=== PATIENT | female | born 1950 | race Caucasian/White ===

== ENCOUNTER 2016-02-25 09:14 | Inpatient (IN) | payer MEDICARE, SELFPAY ==
[~2016-02-25 09:14] MED LIST: METOPROLOL TARTRATE 25 MG TAB PO SCH
[2016-02-25] MEDS ORDERED: SODIUM CHLORIDE 0.9% 10 ML FLUSH FLUSH PRN (09:32)
[2016-02-25 09:41] LABS: AUTOMATED BASOPHIL 1.1 % (0-2); AUTOMATED EOSINOPHIL 2.2 % (0-5); AUTOMATED LYMPH 34.4 % (17-44); AUTOMATED MONOCYTE 7.8 % (3-10); AUTOMATED NEUTROPHIL 54.5 % (45-76); MPV 8.8 fL (7.4-10.4)
[2016-02-25 09:53] LABS: BLOOD UREA NITROGEN 15 MG/DL (7-17); CALCIUM 9.1 MG/DL (8.4-10.2); CALCULATED OSMOLALITY 273 MOs/Kg (270-290); CHLORIDE 102 mEq/L (98-107); GLUCOSE 79 MG/DL (70-99); SODIUM LEVEL 142 mEq/L (137-146); TOTAL PROTEIN 7.3 G/DL (6.3-8.2)
[2016-02-25 09:58] LABS: PARTIAL THROMB. TIME 24.1 SEC (22-35)
--- NOTE | 2016-02-25 10:00 | DIRPT ---
CLINICAL DATA: Chest pain EXAM: PORTABLE CHEST 1 VIEW COMPARISON: March 15, 2015 FINDINGS: There is no edema or consolidation. The heart size and pulmonary vascularity normal. No adenopathy. No pneumothorax. No bone lesions. IMPRESSION: No edema or consolidation. Electronically Signed By: Rufino Carvajal III, M.D. On: 02/25/2016 09:57
--- NOTE | 2016-02-25 10:18 | EDPRACDOC ---
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 PT STATES THAT SHE WAS GETTING READY THIS MORNING WHEN SHE GRADUALLY DEVELOPED CHEST PRESSURE. STATES THAT SHE TOOK 324 ASA AND 2 NITRO WITH MINIMAL RELIEF. MILDLY ASSOCIATED SHOB. PT HAS STENT IN LAD THAT WAS PLACED IN 2011 IN [place]. PMH OF HTN AND HLD. NO APPARENT DISTRESS AT THIS TIME. Chest Pain Location: Reports: Substernal Pain Radiation: Reports: None Symptoms Occur: Reports: Gradually Cardiac Risk Factors: Reports: Hyperlipidemia, Hypertension Cardiac History of: Reports: Cardiac Cath, Stent PE Risk Factors: Reports: None Medications within 24 Hours: Reports: Aspirin, Nitro Prehospital Care: Reports: None Pain Came On: Reports: Gradually Pain Status: Present Now Pain Description: Reports: Pressure Pain Severity: Moderate Pain Worsens With: Reports: Nothing Pain Improves With: Reports: Nothing Associated Signs and Symptoms: Reports: SOB <Anisha North - Last Filed: 02/25/16 10:48> <William Oconnor - Last Filed: 02/25/16 10:52> - General Information Chief Complaint: Chest Pain Stated Complaint: CP/ VOMITING/ DIARRHEA Time Seen by Provider: 02/25/16 09:32 Home Medications: Home Medications Aspirin 325 mg PO DAILY 03/15/15 Atorvastatin Calcium [Lipitor] 20 mg PO DAILY 03/15/15 Clopidogrel Bisulfate [Plavix] 75 mg PO DAILY 03/15/15 Lansoprazole [Prevacid 24Hr] 15 mg PO DAILY 03/15/15 Calcium Carbonate/Vitamin D3 [Calcium + Vit D Tablet (600mg/200IU)] 1 tab PO BID 02/25/16 Cholecalciferol (Vitamin D3) [Vitamin D3] 10,000 unit PO DAILY 02/25/16 Magnesium Oxide [Magnesium] 250 mg PO DAILY 02/25/16 Multivitamin [Multiple Vitamins] 1 tab PO DAILY 02/25/16 Allergies/Adverse Reactions: Allergies Allergy/AdvReac Type Severity Reaction Status Date / Time codeine [Codeine] Allergy Severe Anaphylaxis Verified 02/25/16 09:24 * iohexol [From Omnipaque 140] Allergy Severe Anaphylaxis Verified 02/25/16 09:24 * Iodinated Contrast Media - Allergy Anaphylaxis Verified 02/25/16 09:24 IV Dye * ED Past Medical History - History Reviewed Yes Nurses notes reviewed and agree except as marked - Patient Medical History Cardiac History: Reports: Coronary Artery Disease (stent), Hypertension, Heart Attack, Cardiac Catheterization (stents), Hypercholesterolemia Respiratory History: Reports: Asthma Musculoskeletal History: Reports: Arthritis Psychological History: Denies: Depression, Substance Use Disorder Systemic History: Reports: Cancer, Anemia, Diabetes (UNSURE IF DXD WITH DMT, STATES SHE CHECKS HER GLUCOSE INTERMITTENT) Surgical History: Reports: Cholecystectomy, Hysterectomy, Cardiac Catheterization (stents) - Family Medical History Reports: Hypertension (father, sister mother), Diabetes (father, sister mother, grandfather), Cancer (mother), Stroke (mother), Cardiac Disorders (father, sister, mother) - Social Medical History Smoking Status: Never smoker Social History: Denies: Substance Use Disorder <Anisha Nroth - Last Filed: 02/25/16 10:48> EDM Review of Systems - Review of Systems ROS Negative Except as Marked: Yes All systems reviewed and were negative except as marked Constitutional: No Symptoms Reported Respiratory: Shortness of Breath Cardiovascular: Chest Pain Gastrointestinal: No Symptoms Reported Genitourinary: No Symptoms Reported Neurological: No Symptoms Reported Musculoskeletal: No Symptoms Reported Integumentary: No Symptoms Reported <Anisha North - Last Filed: 02/25/16 10:48> - Physical Exam Constitutional: Alert (Awake), No apparent distress Oriented to: Time, Person, Place Last recorded Vital Signs: Last Vital Signs Temp 97.6 F 02/25/16 09:21 Pulse 69 02/25/16 09:39 Resp 20 02/25/16 09:39 BP 148/70 02/25/16 09:39 Pulse Ox 94 02/25/16 09:39 Oxygen Pulse Oxygen Saturation 94 O2 Device Room Air Oxygen Flow Rate Fraction of Inspired Oxygen ( FIO2) - HEENT Head: Normal Eye Exam: Normal Neck: Normal, Denies Pain, Midline - Respiratory/Cardiovascular Respiratory: Normal - CTA Cardiovascular: Normal - GI Auscultation: Normal Palpation: Normal Tenderness: Non tender - Musculoskeletal Back: Normal Extremities: Normal - Integumentary Skin: Normal Lymphatics: Normal - Neurologic Cerebellar: Normal Mood Description: Normal Thought: Coherent Perception: Normal <Anisha North - Last Filed: 02/25/16 10:48> - Physical Exam Last recorded Vital Signs: Last Vital Signs Temp 97.6 F 02/25/16 09:21 Pulse 69 02/25/16 10:34 Resp 17 02/25/16 10:34 BP 135/63 02/25/16 10:34 Pulse Ox 96 02/25/16 10:34 Oxygen Pulse Oxygen Saturation 96 O2 Device Room Air Oxygen Flow Rate Fraction of Inspired Oxygen ( FIO2) <William Oconnor - Last Filed: 02/25/16 10:52> ED Chest Pain Exam - Respiratory/Cardiovascular Respiratory: Normal - CTA Cardiovascular/Chest: Normal Radial Pulse: Normal Chest Palpation: Normal <Anisha North - Last Filed: 02/25/16 10:48> - Action ASA given in the ED: No Aspirin therapy held due to: Other-specify below* (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) - Results 02/25/16 09:29 02/25/16 09:29 WBC 5.5 xk/uL (3.8-10.8) 02/25/16 09:29 RBC 4.49 xM/uL (4.20-5.40) 02/25/16 09:29 Hgb 13.2 g/dL (12.0-16.0) 02/25/16 09:29 Hct 39.4 % (36-47) 02/25/16 09:29 MCV 88 fL (81-99) 02/25/16 09:29 MCH 29.3 pg (27-32) 02/25/16 09:29 MCHC 33.4 g/dl (33-36) 02/25/16 09:29 RDW 14.2 % (11.5-14.5) 02/25/16 09:29 Plt Count 280 xk/uL (130-400) 02/25/16 09:29 MPV 8.8 fL (7.4-10.4) 02/25/16 09:29 Neut % (Auto) 54.5 % (45-76) 02/25/16 09:29 Lymph % (Auto) 34.4 % (17-44) 02/25/16 09:29 [place] % (Auto) 7.8 % (3-10) 02/25/16 09:29 Eos % (Auto) 2.2 % (0-5) 02/25/16 09:29 Baso % (Auto) 1.1 % (0-2) 02/25/16 09:29 Absolute Neuts (auto) 2.97 xk/uL (1.7-8.2) 02/25/16 09:29 Absolute Lymphs (auto) 1.87 xk/uL (0.65-4.75) 02/25/16 09:29 PT 10.1 SEC (9.2-11.2) 02/25/16 09:29 INR 1.0 02/25/16 09:29 APTT 24.1 SEC (22-35) 02/25/16 09:29 Sodium 142 mEq/L (137-146) 02/25/16 09:29 Potassium 4.0 mEq/L (3.5-5.1) 02/25/16 09: Chloride 102 mEq/L (98-107) 02/25/16 09: Carbon Dioxide 30 mMOL/L (22-33) 02/25/16 09:29 Anion Gap 14 mEq/L (8-16) 02/25/16 09:29 BUN 15 MG/DL (7-17) 02/25/16 09:29 Creatinine 1.20 MG/DL (0.52-1.04) H 02/25/16 09:29 Estimated GFR (MDRD) 45 mL/min (>=60) L 02/25/16 09:29 Glucose 79 MG/DL (70-99) 02/25/16 09:29 Calculated Osmolality 273 MOs/Kg (270-290) 02/25/16 09:29 Calcium 9.1 MG/DL (8.4-10.2) 02/25/16 09:29 Total Bilirubin 0.6 MG/DL (0.2-1.3) 02/25/16 09:29 AST 22 IU/L (14-36) 02/25/16 09:29 ALT 28 IU/L (9-52) 02/25/16 09:29 Alkaline Phosphatase 116 IU/L (55-165) 02/25/16 09:29 Total Protein 7.3 G/DL (6.3-8.2) 02/25/16 09:29 Albumin 4.1 G/DL (3.5-5.0) 02/25/16 09:29 Lab Results 02/25/16 02/25/16 02/25/16 09:29 09:29 09:29 WBC 5.5 RBC 4.49 Hgb 13.2 Hct 39.4 MCV 88 MCH 29.3 MCHC 33.4 RDW 14.2 Plt Count 280 MPV 8.8 Neut % (Auto) 54.5 Lymph % (Auto) 34.4 [place] % (Auto) 7.8 Eos % (Auto) 2.2 Baso % (Auto) 1.1 Absolute Neuts (auto) 2.97 Absolute Lymphs (auto) 1.87 PT 10.1 INR 1.0 APTT 24.1 Sodium 142 Potassium 4.0 Chloride 102 Carbon Dioxide 30 Anion Gap 14 BUN 15 Creatinine 1.20 H Estimated GFR (MDRD) 45 L Glucose 79 Calculated Osmolality 273 Calcium 9.1 Total Bilirubin 0.6 AST 22 ALT 28 Alkaline Phosphatase 116 Total Protein 7.3 Albumin 4.1 Laboratory Results - last 24 hr 02/25/16 02/25/16 02/25/16 09:29 09:29 09:29 WBC 5.5 RBC 4.49 Hgb 13.2 Hct 39.4 MCV 88 MCH 29.3 MCHC 33.4 RDW 14.2 Plt Count 280 MPV 8.8 Neut % (Auto) 54.5 Lymph % (Auto) 34.4 [place] % (Auto) 7.8 Eos % (Auto) 2.2 Baso % (Auto) 1.1 Absolute Neuts (auto) 2.97 Absolute Lymphs (auto) 1.87 PT 10.1 INR 1.0 APTT 24.1 Sodium 142 Potassium 4.0 Chloride 102 Carbon Dioxide 30 Anion Gap 14 BUN 15 Creatinine 1.20 H Estimated GFR (MDRD) 45 L Glucose 79 Calculated Osmolality 273 Calcium 9.1 Total Bilirubin 0.6 AST 22 ALT 28 Alkaline Phosphatase 116 Total Protein 7.3 Albumin 4.1 Laboratory Results 02/25/16 09:29 02/25/16 09:29 - EKG EKG #1 EKG Time: :19 -: Yes EKG interpreted by me Rate: bpm: 72 [place]: Normal Rhythm: NSR Block: None Hypertrophy: None ST: Normal Comparison: 03/15/15 <Anisha North - Last Filed: 02/25/16 10:48> - Results 02/25/16 09:29 02/25/16 09:29 WBC 5.5 xk/uL (3.8-10.8) 02/25/16: RBC 4.49 xM/uL (4.20-5.40) 02/25/16: Hgb 13.2 g/dL (12.0-16.0) 02/25/16: Hct 39.4 % (36-47) 02/25/16: MCV 88 fL (81-99) 02/25/16: MCH 29.3 pg (27-32) 02/25/16: MCHC 33.4 g/dl (33-36) 02/25/16: RDW 14.2 % (11.5-14.5) 02/25/16: Plt Count 280 xk/uL (130-400) 02/25/16: MPV 8.8 fL (7.4-10.4) 02/25/16: Neut % (Auto) 54.5 % (45-76) 02/25/16: Lymph % (Auto) 34.4 % (17-44) 02/25/16: [place] % (Auto) 7.8 % (3-10) 02/25/16: Eos % (Auto) 2.2 % (0-5) 02/25/16 Baso % (Auto) 1.1 % (0-2) 02/25/16 Absolute Neuts (auto) 2.97 xk/uL (1.7-8.2) 02/25/16: Absolute Lymphs (auto) 1.87 xk/uL (0.65-4.75) 02/25/16: PT 10.1 SEC (9.2-11.2) 02/25/16: INR 1.0 02/25/16: APTT 24.1 SEC (22-35) 02/25/16: Sodium 142 mEq/L (137-146) 02/25/16: Potassium 4.0 mEq/L (3.5-5.1) 02/25/16: Chloride 102 mEq/L (98-107) 02/25/16: Carbon Dioxide 30 mMOL/L (22-33) 02/25/16 09:29 Anion Gap 14 mEq/L (8-16) 02/25/16 09:29 BUN 15 MG/DL (7-17) 02/25/16 09:29 Creatinine 1.20 MG/DL (0.52-1.04) H 02/25/16 09:29 Estimated GFR (MDRD) 45 mL/min (>=60) L 02/25/16 09:29 Glucose 79 MG/DL (70-99) 02/25/16 09:29 Calculated Osmolality 273 MOs/Kg (270-290) 02/25/16 09:29 Calcium 9.1 MG/DL (8.4-10.2) 02/25/16 09:29 Total Bilirubin 0.6 MG/DL (0.2-1.3) 02/25/16 09:29 AST 22 IU/L (14-36) 02/25/16 09:29 ALT 28 IU/L (9-52) 02/25/16 09:29 Alkaline Phosphatase 116 IU/L (55-165) 02/25/16 09:29 Troponin I < 0.01 ng/mL (<.04) 02/25/16 09:29 Total Protein 7.3 G/DL (6.3-8.2) 02/25/16 09:29 Albumin 4.1 G/DL (3.5-5.0) 02/25/16 09:29 Lab Results 02/25/16 02/25/16 02/25/16 09:29 09:29 09:29 WBC 5.5 RBC 4.49 Hgb 13.2 Hct 39.4 MCV 88 MCH 29.3 MCHC 33.4 RDW 14.2 Plt Count 280 MPV 8.8 Neut % (Auto) 54.5 Lymph % (Auto) 34.4 [place] % (Auto) 7.8 Eos % (Auto) 2.2 Baso % (Auto) 1.1 Absolute Neuts (auto) 2.97 Absolute Lymphs (auto) 1.87 PT 10.1 INR 1.0 APTT 24.1 Sodium 142 Potassium 4.0 Chloride 102 Carbon Dioxide 30 Anion Gap 14 BUN 15 Creatinine 1.20 H Estimated GFR (MDRD) 45 L Glucose 79 Calculated Osmolality 273 Calcium 9.1 Total Bilirubin 0.6 AST 22 ALT 28 Alkaline Phosphatase 116 Troponin I < 0.01 Total Protein 7.3 Albumin 4.1 Laboratory Results - last 24 hr 02/25/16 02/25/16 02/25/16 09:29 09:29 09:29 WBC 5.5 RBC 4.49 Hgb 13.2 Hct 39.4 MCV 88 MCH 29.3 MCHC 33.4 RDW 14.2 Plt Count 280 MPV 8.8 Neut % (Auto) 54.5 Lymph % (Auto) 34.4 [place] % (Auto) 7.8 Eos % (Auto) 2.2 Baso % (Auto) 1.1 Absolute Neuts (auto) 2.97 Absolute Lymphs (auto) 1.87 PT 10.1 INR 1.0 APTT 24.1 Sodium 142 Potassium 4.0 Chloride 102 Carbon Dioxide 30 Anion Gap 14 BUN 15 Creatinine 1.20 H Estimated GFR (MDRD) 45 L Glucose 79 Calculated Osmolality 273 Calcium 9.1 Total Bilirubin 0.6 AST 22 ALT 28 Alkaline Phosphatase 116 Troponin I < 0.01 Total Protein 7.3 Albumin 4.1 Laboratory Results 02/25/16 09:29 02/25/16 09:29 <William Oconnor - Last Filed: 02/25/16 10:52> - Departure Disposition: Admit IP To This Hospital Education/Counseling Given To: Patient Education/Counseling Given Regarding: Diagnosis, Treatment, Follow Up Decision to Admit Time: 10:49 Decision to admit date: 02/25/16 Decision to admit: from ED <Anisha North - Last Filed: 02/25/16 10:48> - Departure Yes I personally saw and evaluated the patient. Disposition: Admit IP To This Hospital - Physician Consulted Hospitalist Time Called: 10:52 Provider Called: Enriqueta Umanzor Time Manager Style Returned Call: 10:52 <William Oconnor - Last Filed: 02/25/16 10:52> - Departure Condition: Stable Final Diagnosis: Chest pain Qualifiers: Chest pain type: unspecified Qualified Code(s): R07.9 - Chest pain, unspecified
[2016-02-25 12:16] LABS: LEUKOCYTES/URINE NEG (NEGATIVE); NITRITE/URINE NEG (NEGATIVE); URINE OCCULT BLOOD NEG (NEG/TRACE)
[2016-02-25 12:19] LABS: RBC/URINE 0-2 (0-5); WBC/URINE 0-2 (0-5)
--- NOTE | 2016-02-25 12:23 | HISTPHYS ---
- Chief Complaint Chest pain - History of Present Illness This is a pleasant 65-year-old female with a history of coronary artery disease and cardiac stenting in 2011 was being admitted to the hospital this morning due to chest pain. She tells me that she has been in her usual state of health , when she started feeling a fluttering and turning over sensation in her chest yesterday while she was at rest. This symptom past, and this morning when she was lying in bed she felt sudden onset at rest of chest pressure and slight pain , that was in the left mid sternal region, and radiated down to the middle of her left arm, as well as up into her left side of her neck. She feels that this is the same way she felt when she was previously diagnosed with coronary artery disease and required coronary artery stenting. She also notes that for the last several weeks she has had some associated vertigo, with sensation of the room spinning, associated nausea and dizziness. - Medical History Cardiac History: Reports: Coronary Artery Disease (stent), Hypertension, Heart Attack, Cardiac Catheterization (stents), Hypercholesterolemia Respiratory History: Reports: Asthma Musculoskeletal History: Reports: Arthritis Systemic History: Reports: Cancer, Anemia, Diabetes (UNSURE IF DXD WITH DMT, STATES SHE CHECKS HER GLUCOSE INTERMITTENT) Psychological History: Denies: Depression, Substance Use Disorder - Surgical History Reports: Cholecystectomy, Hysterectomy, Cardiac Catheterization (stents) - Medictions/Allergies Allergies codeine [Codeine] Allergy (Severe, Verified 02/25/16 09:24) Anaphylaxis* iohexol [From Omnipaque 140] Allergy (Severe, Verified 02/25/16 09:24) Anaphylaxis* Iodinated Contrast Media - IV Dye Allergy (Verified 02/25/16 09:24) Anaphylaxis* Home Medications Aspirin 325 mg PO DAILY 03/15/15 Atorvastatin Calcium [Lipitor] 20 mg PO DAILY 03/15/15 Clopidogrel Bisulfate [Plavix] 75 mg PO DAILY 03/15/15 Lansoprazole [Prevacid 24Hr] 15 mg PO DAILY 03/15/15 Calcium Carbonate/Vitamin D3 [Calcium + Vit D Tablet (600mg/200IU)] 1 tab PO BID 02/25/16 Cholecalciferol (Vitamin D3) [Vitamin D3] 10,000 unit PO DAILY 02/25/16 Magnesium Oxide [Magnesium] 250 mg PO DAILY 02/25/16 Multivitamin [Multiple Vitamins] 1 tab PO DAILY 02/25/16 - Family History Reports: Hypertension (father, sister mother), Diabetes (father, sister mother, grandfather), Cancer (mother), Stroke (mother), Cardiac Disorders (father, sister, mother) - Social History Smoking Status: Never smoker Social History: Denies: Substance Use Disorder - Review of Systems Constitutional: No Symptoms Reported (No fever, chills, wt loss/gain, fatigue) Eyes: No Symptoms Reported (No blurry vision, visual changes) Respiratory: No Symptoms Reported (No cough,wheezing or shortness of breath) Cardiovascular: No Symptoms Reported (No Chest pain, palpitations) Gastrointestinal: No Symptoms Reported (No abdominal pain, nausea, vomiting, diarrhea or constipation) Genitourinary: No Symptoms Reported (No dysuria) Musculoskeletal:: No Symptoms Reported (No headache, dizzness, seizures or focal weakness) Integumentary: No Symptoms Reported (No rashes or lesions) Hematologic: No Symptoms Reported (No bleeding or easy bruising) Endocrine: No Symptoms Reported (No polyuria) - Physical Exam Vital Signs: Initial Vitals Temperature 97.6 F 02/25/16 09:21 Pulse Rate 94 02/25/16 09:21 Respiratory Rate 18 02/25/16 09:21 Blood Pressure 154/81 02/25/16 09:21 Pulse Oxygen Saturation 97 02/25/16 09:21 Constitutional: Alert (Awake, Fully oriented, well appearing. No apparent distress) Oriented to: Time, Person, Place - HEENT Head: Normal (normocephalic,atraumatic, trachea midline) Eye: Normal (EOMI, Sclera white) Oropharynx: Normal (moist) Nose: No Symptoms Reported (without discharge or bleeding) Respiratory: Normal - CTA (Clear to auscultation bilaterally, no wheezing,rales or rhonchi. No use of accessory muscles) Cardiovascular: Normal (RRR, no murmurs, rubs or gallops) - GI Palpation: Normal (soft, non distended and nontender) - Musculoskeletal Extremities: Normal (normal tone, no cyanosis or edema) - Integumentary Skin: Normal (no rashes or lesions) - Neurologic Cranial Nerve: Normal (CN II-XII intact) Mood Description: Normal (Fully oriented and appropiate affect) - Focused CV Perfusion Exam Vital Signs: Last Vital Signs Temp 97.6 F 02/25/16 09:21 Pulse 56 L 02/25/16 11:32 Resp 22 02/25/16 11:32 BP 147/67 02/25/16 11:32 Pulse Ox 96 02/25/16 11:32 - Lab Results Laboratory Tests 02/25/16 02/25/16 02/25/16 09:29 09:29 09:29 WBC 5.5 Hgb 13.2 Hct 39.4 Plt Count 280 INR 1.0 Potassium 4.0 BUN 15 Creatinine 1.20 H Troponin I < 0.01 - Diagnostic Findings Chest x-ray: There is no edema or consolidation. The heart size and pulmonary vascularity normal. No adenopathy. No pneumothorax. No bone lesions. - Assessment (1) Chest pain R07.9 - CHEST PAIN, UNSPECIFIED Acute Qualifiers: Chest pain type: unspecified Ischemic chest pain type: I Qualified Code(s ): R07.9 - Chest pain, unspecified Admit under observation status to chest pain observation center. Patient will be placed on telemetry monitoring, will receive trending of troponins, if these are negative patient has been informed that she will have stress test in the morning. If this is unremarkable, she will be discharged home. She has been instructed that if her stress test is negative, she will be asked to follow up with primary care provider regarding other potential causes for chest pain. Patient was maintained on her home aspirin, statin, beta-lev and IV morphine and nitroglycerin for chest pain. (2) Coronary artery disease I25.10 - ATHSCL HEART DISEASE OF [place] CORONARY ARTERY W/O ANG PCTRS Acute Qualifiers: Coronary Disease-Associated Artery/Lesion type: C [place] vs. transplanted heart: N Associated angina: A Continue patient's home aspirin and Plavix, also started on low-dose beta- lev with holding parameters (unsure why she is not on this at home, potentially due to her bradycardia). (3) Nausea and vomiting in adult R11.2 - NAUSEA WITH VOMITING, UNSPECIFIED Acute (4) Presence of stent in coronary artery in patient with coronary artery disease I25.10 - ATHSCL HEART DISEASE OF [place] CORONARY ARTERY W/O ANG PCTRS; Z95.5 - PRESENCE OF CORONARY ANGIOPLASTY IMPLANT AND GRAFT Acute Continue home medications including aspirin and Plavix as above. Total Time: 48
[2016-02-25] MEDS ORDERED: Pharmacy Order Set Alert SCH (13:00)
[2016-02-25] MEDS ORDERED: Vaccine Screening Complete SCH (15:00)
[2016-02-25] MEDS: NITROGLYCERINE 0.4 MG TAB SL PRN ×3 (18:59→19:14)
[2016-02-25] MEDS: ONDANSETRON HCL 4 MG/2 ML VIAL IV PRN (19:08)
[2016-02-25] MEDS: METOPROLOL TARTRATE 25 MG TAB PO SCH (22:03)
[2016-02-25] MEDS: NITROGLYCERINE 2 % OINTMENT PACK TOP SCH (23:35)
[2016-02-25] MEDS: ACETAMINOPHEN 325 MG/TAB TABLET PO PRN (23:37)
[2016-02-26 03:54] LABS: MPV 9.5 fL (7.4-10.4)
[2016-02-26 04:07] LABS: BLOOD UREA NITROGEN 17 MG/DL (7-17); CALCULATED OSMOLALITY 266 MOs/Kg (270-290); CHLORIDE 100 mEq/L (98-107); GLUCOSE 98 MG/DL (70-99); LDL (calc.) 72.4 MG/DL (<100); SODIUM LEVEL 137 mEq/L (137-146); VLDL (calc.) 20.6 MG/DL (5-40)
[2016-02-26] MEDS: NITROGLYCERINE 2 % OINTMENT PACK TOP SCH ×3 (05:41→17:09)
[2016-02-26] MEDS: LANSOPRAZOLE 15 MG PO SCH (05:42)
[2016-02-26] MEDS ORDERED: Non-Formulary Medication ITEM (Multivitamin [Multiple Vitamins] 1 TAB) PO SCH (09:00)
[2016-02-26] MEDS ORDERED: REGADENOSON 0.4 MG/5 ML SYRINGE IV ONE (09:00)
[2016-02-26] MEDS ORDERED: MAGNESIUM OXIDE 250 MG PO SCH (09:00)
[2016-02-26] MEDS ORDERED: SODIUM CHLORIDE 0.9% 10 ML FLUSH FLUSH ONE (09:00)
[2016-02-26] MEDS ORDERED: LANSOPRAZOLE 15 MG PO SCH (09:00)
[2016-02-26] MEDS ORDERED: SESTAMIBI 8 MCI V IV ONE (10:33)
--- NOTE | 2016-02-26 12:16 | PCM.CARDCO ---
Consultation Date: 02/26/16 Requesting Physician: Xu Buckner Mechanical Oxidizer: Johnathan Case Consult Reason: Chest Pain - History of Present Illness Nia is a 65-year-old woman history of CAD remote PCI and stent last seen by Dr. samaniego 2 years ago. She relates she gets intermittent nonexertional chest heaviness relieved with rest. She had a more prolonged severe episode last evening associated with nausea some radiation through to the left shoulder unrelieved with nitroglycerin home that lasted for several hours and spontaneously resolved. He was moderate in severity on associated with activity unrelieved with nitroglycerin and rest. Serial troponins are undetectable EKG is normal and she underwent a myocardial perfusion study this morning. Chief Complaint: Chest pain - Past Medical and Surgical History Cardiac History: Reports: Coronary Artery Disease (stent), Hypertension, Cardiac Catheterization (stents), Hypercholesterolemia. Denies: Heart Attack, CABG, Pacemaker, SVT Respiratory History: Reports: Asthma. Denies: COPD, Pneumonia, Emphysema GI/ History: Reports: Diverticulosis. Denies: Ulcer, Pancreatitis Systemic History: Reports: Cancer, Anemia, Diabetes (UNSURE IF DXD WITH DMT, STATES SHE CHECKS HER GLUCOSE INTERMITTENT). Denies: Hyperthyroidism, Hypothyroidism Musculoskeletal History: Reports: Arthritis. Denies: Gout Psychological History: Denies: Depression, Anxiety, Bipolar Disorder, Substance Use Disorder Past Surgical History: Reports: Cholecystectomy, Hysterectomy, Cardiac Catheterization (stents). Denies: Appendectomy, CABG, Angioplasty, Hernia Surgery, Tonsillectomy/Adnoidectomy Allergies codeine [Codeine] Allergy (Severe, Verified 02/25/16 09:24) Anaphylaxis* iohexol [From Omnipaque 140] Allergy (Severe, Verified 02/25/16 09:24) Anaphylaxis* Iodinated Contrast Media - IV Dye Allergy (Verified 02/25/16 09:24) Anaphylaxis* Home Medications Aspirin 325 mg PO DAILY 03/15/15 Atorvastatin Calcium [Lipitor] 20 mg PO DAILY 03/15/15 Clopidogrel Bisulfate [Plavix] 75 mg PO DAILY 03/15/15 Lansoprazole [Prevacid 24Hr] 15 mg PO DAILY 03/15/15 Calcium Carbonate/Vitamin D3 [Calcium + Vit D Tablet (600mg/200IU)] 1 tab PO BID 02/25/16 Cholecalciferol (Vitamin D3) [Vitamin D3] 10,000 unit PO DAILY 02/25/16 Magnesium Oxide [Magnesium] 250 mg PO DAILY 02/25/16 Multivitamin [Multiple Vitamins] 1 tab PO DAILY 02/25/16 - Social History Travel Outside of [place] in the Last 3 Months?: No Smoking Status: Never smoker Social History: Denies: Substance Use Disorder - Family History Reports: Hypertension (father, sister mother), Diabetes (father, sister mother, grandfather), Cancer (mother), Stroke (mother, grandmother), Cardiac Disorders ( father, sister, mother) - Review of Systems Yes All systems reviewed and were negative except as marked Constitutional: No Symptoms Reported (No fever, chills, wt loss/gain, fatigue) - Respiratory Shortness of Breath - Cardiovascular Chest Pain - Gastrointestinal Gastrointestinal: Nausea - Physical Exam Constitutional: Alert (Awake, Fully oriented, well appearing. No apparent distress), Well nourished, Well appearing Oriented to: Time, Person, Place Exam: Last Vital Signs Temp 97.8 F 02/26/16 11:34 Pulse 55 L 02/26/16 11:34 Resp 18 02/26/16 11:34 BP 134/69 02/26/16 11:34 Pulse Ox 94 02/26/16 11:34 Intake & Output 02/25/16 02/26/16 02/26/16 23:59 07:59 15:59 Intake Total 1560 Output Total 400 550 400 Balance 1160 -550 -400 Patient's weight 174 lb 2 oz - HEENT Head: Normal (No bruit thyromegaly or neck vein distention) Eye: Normal (EOMI, Sclera white) Oropharynx: Normal (moist) Nose: No Symptoms Reported (without discharge or bleeding) - Respiratory/Cardiovascular Respiratory: Normal - CTA (Clear to auscultation bilaterally, no wheezing,rales or rhonchi. No use of accessory muscles) Cardiovascular: Normal, Other (She had no chest wall tenderness). negative: Systolic murmur, Gallop/S3, Gallop/S4 - GI Auscultation: Normal Palpation: Normal (soft, non distended and nontender) GI Addtional Findings: Soft nondistended nontender abdomen - Musculoskeletal Extremities: Normal (normal tone, no cyanosis or edema), Femoral Pulse, Pedal Pulse, Radial Pulse. negative: Calf Tenderness, Clubbing, Cyanosis, Edema, Pedal Edema - Integumentary Skin: Normal (no rashes or lesions), Other (No xanthoma or xanthelasma). negative: Diaphoretic, Pale - Neurologic Mood Description: Normal (Fully oriented and appropiate affect) - Lab Results Laboratory Tests 02/25/16 02/26/16 02/26/16 09:29 03:35 03:35 WBC 4.6 Hgb 12.0 Plt Count 229 INR 1.0 Potassium 5.0 Creatinine 1.00 Estimated GFR (MDRD) 55 L LDL Cholesterol, Calc 72.4 Chest x-ray; FINDINGS: There is no edema or consolidation. The heart size and pulmonary vascularity normal. No adenopathy. No pneumothorax. No bone lesions. IMPRESSION: No edema or consolidation. EKGS SINUS RHYTHM NORMAL - Assessment/Plan (1) Coronary artery disease I25.10 - ATHSCL HEART DISEASE OF [place] CORONARY ARTERY W/O ANG PCTRS Chronic Present on Admission: Yes [place] artery [place] heart angina presence unspecified I25.10 - Atherosclerotic heart disease of [place] coronary artery without angina pectoris Comment: WITH KNOWN CAD AND REMOTE PCI APPROXIMATELY 2009 she is at high risk of recurrent ischemia, for myocardial perfusion study shows high risk findings she would benefit from angiography and further revascularization. At this time there is no evidence of acute coronary syndrome. Continue current treatment dual anti-platelet therapy aspirin and clopidogrel beta-lev and a high intensity statin. (2) Chest pain R07.9 - CHEST PAIN, UNSPECIFIED Acute Present on Admission: Yes unspecified I R07.9 - Chest pain, unspecified Comment: Best described is atypical angina. Plan above (3) Essential hypertension I10 - ESSENTIAL (PRIMARY) HYPERTENSION Chronic Comment: Stable continue current treatment with beta-lev (4) Hyperlipidemia E78.5 - HYPERLIPIDEMIA, UNSPECIFIED Chronic Present on Admission: Yes unspecified E78.5 - Hyperlipidemia, unspecified Comment: Stable continue her high intensity statin. Case Care Discussed with: Patient
--- NOTE | 2016-02-26 12:23 | CAPUEKG ---
[place], [place] Test Date: 2016-02-25 Pat Name: DORA MARIA Department: Room: 452 Gender: Female Legal Word Processor: RENETTA BABBB: Requested By: Order Number: Reading MD: Johnathan Case MD Measurements Intervals [place] Rate: 66 P: 41 IA: 172 QRS: 7 QRSD: 82 T: 37 QT: 424 QTc: 444 Interpretive Statements Normal sinus rhythm Normal ECG Electronically Signed On 02-26-16 12:22:54 EST by Johnathan Case MD [id number]> [id number]
--- NOTE | 2016-02-26 13:06 | DIRPT ---
CLINICAL DATA: Chest pain EXAM: NM LEXISCAN CARDIOLITE TECHNIQUE: Cardiolite cardiac stress Test Lexiscan 2 days protocol RADIOPHARMACEUTICALS: Twenty-five and 25 millicuries TC 99 M Cardiolite COMPARISON: None. FINDINGS: A Cardiolite cardiac stress Test Lexiscan 2 days protocol was performed. The stress portion of the test was supervised by Dr. Case. I reviewed the images with him. There is inferior lateral wall ischemia. Normal wall motion and contractility. Left ventricle ejection fraction is 47%. IMPRESSION: Inferior/lateral wall ischemia. Normal wall motion. Left ventricle ejection fraction is 47%. Electronically Signed By: Juan Bhakta M.D. On: 02/26/2016 13:04
[2016-02-26] MEDS: MAGNESIUM OXIDE 400 MG TAB PO SCH (13:11)
[2016-02-26] MEDS: ATORVASTATIN 20 MG TAB PO SCH (13:11)
[2016-02-26] MEDS: ASPIRIN 325 MG TAB PO SCH (13:12)
[2016-02-26] MEDS: CLOPIDOGREL 75 MG TAB PO SCH (13:14)
[2016-02-26] MEDS: VITAMINS, MULTIPLE CAP PO SCH (13:15)
[2016-02-26] MEDS: METOPROLOL TARTRATE 25 MG TAB PO SCH ×2 (13:18→21:07)
--- NOTE | 2016-02-26 13:27 | GENMEDPROG ---
Chief Complaint: Acute coronary syndrome Subjective Note: Comfortable in seen this morning prior to stress testing. Still having a little bit of pressure on the left side of her chest. Notes Reviewed: Yes Events from last night noted and discussed with Clinical Staff Current Medication List: Reviewed DVT Prophylaxis: Yes - Physical Examination Vital Signs and I&O: Last Vital Signs Temp 97.8 F 02/26/16 11:34 Pulse 61 02/26/16 13:18 Resp 18 02/26/16 11:34 BP 134/69 02/26/16 11:34 Pulse Ox 94 02/26/16 11:34 Oxygen Pulse Oxygen Saturation 94 O2 Device Nasal Cannula Oxygen Flow Rate 2 Fraction of Inspired Oxygen ( FIO2) Intake & Output 02/24/16 02/25/16 02/26/16 02/27/16 06:59 06:59 06:59 06:59 Intake Total 1560 Output Total 950 400 Balance 610 -400 Patient's weight 78.982 kg General: Alert, Oriented x3, Cooperative Neck: Normal Trachea alignment, Normal inspection Respiratory: Normal - CTA (Clear to auscultation bilaterally, no wheezing,rales or rhonchi. No use of accessory muscles) Cardiovascular: Regular rate, No Gallops,Rubs/Murmurs GI: Normal bowel sounds, Soft, Non tender (non distended) Extremities/Musculoskeletal: Other (Normal Tone). negative: Edema, Cyanosis Lab/DI/Studies Reviewed: Laboratory Tests 02/26/16 02/26/16 03:35 03:35 WBC 4.6 Hgb 12.0 Hct 36.2 Potassium 5.0 BUN 17 Creatinine 1.00 - Assessment (1) Acute coronary syndrome Acute I24.9 - ACUTE ISCHEMIC HEART DISEASE, UNSPECIFIED Comment/Plan: Patient was admitted to the hospital to rule out CA, but stress testing this morning does confirm a coronary syndrome with stress testing today consistent with the presence of ischemia in the distribution of the right coronary artery from the apex to base. She has normal ejection fraction. She was seen in consultation by Cardiology Dr. Case. He does recommend inpatient catheterization. Continue medical therapy, including aspirin, home Plavix, beta-lev (limited by bradycardia) and statin. (2) Coronary artery disease Chronic I25.10 - ATHSCL HEART DISEASE OF [place] CORONARY ARTERY W/O ANG PCTRS Qualifiers: Coronary Disease-Associated Artery/Lesion type: [place] artery [place] vs. transplanted heart: [place] heart Associated angina: angina presence unspecified Qualified Code(s): I25.10 - Atherosclerotic heart disease of [place] coronary artery without angina pectoris Comment/Plan: Continue patient's home aspirin and Plavix, also started on low- dose beta-lev with holding parameters (unsure why she is not on this at home , potentially due to her bradycardia). (3) Nausea and vomiting in adult Acute R11.2 - NAUSEA WITH VOMITING, UNSPECIFIED (4) Presence of stent in coronary artery in patient with coronary artery disease Acute I25.10 - ATHSCL HEART DISEASE OF [place] CORONARY ARTERY W/O ANG PCTRS; Z95.5 - PRESENCE OF CORONARY ANGIOPLASTY IMPLANT AND GRAFT Comment/Plan: Continue home medications including aspirin and Plavix as above.
--- NOTE | 2016-02-26 14:18 | PCM.STRESS ---
This is a Lexiscan Cardiolite test. She received a standard dose of Lexiscan. The resting heart rate and blood pressure, 54 beats per minute and 140/82. The peak heart rate and blood pressure, 108 beats per minute 144/86. The resting EKG shows sinus rhythm and is normal. The stress EKG ST segment response is normal to 70% of the maximum predicted heart rate of 153 beats per minute. The blood pressure response is normal. The rhythm is sinus, there is no arrhythmia. Symptoms present include flushing and abdominal discomfort transiently, there is no chest pain. The radiologist will generate the Cardiolite image report.
[2016-02-27] MEDS: ACETAMINOPHEN 325 MG/TAB TABLET PO PRN (01:05)
[2016-02-27] MEDS: NITROGLYCERINE 2 % OINTMENT PACK TOP SCH ×2 (01:05→04:56)
[2016-02-27] MEDS: LANSOPRAZOLE 15 MG PO SCH (04:56)
[2016-02-27 05:39] LABS: MPV 9.2 fL (7.4-10.4)
[2016-02-27 05:54] LABS: BLOOD UREA NITROGEN 21 MG/DL (7-17); CALCULATED OSMOLALITY 267 MOs/Kg (270-290); CHLORIDE 99 mEq/L (98-107); GLUCOSE 107 MG/DL (70-99); SODIUM LEVEL 137 mEq/L (137-146)
[2016-02-27] MEDS: ONDANSETRON HCL 4 MG/2 ML VIAL IV PRN (09:10)
[2016-02-27] MEDS: NITROGLYCERINE 0.4 MG TAB SL PRN (09:29)
--- NOTE | 2016-02-27 10:13 | PCM.CARD ---
- Subjective Current Assessment: Chest Pain (This morning she had a severe headache associated with nausea and very mild vague left chest discomfort, the chest pain was relieved with nitroglycerin her EKG did not show acute ischemic changes. Presently she is having no chest pain. She does have a nitroglycerin patch on she has no history of migraine headache.), Headache, Nausea Vital Signs: Last Vital Signs Temp 97.6 F 02/27/16 08:28 Pulse 56 L 02/27/16 09:54 Resp 18 02/27/16 09:34 BP 115/68 02/27/16 09:34 Pulse Ox 93 02/27/16 09:34 Respiratory: Normal - CTA (No chest wall tenderness) Jugular Vein Distention: None Pulse Rhythm: Regular EKG Rhythm: Sinus Rhythm (No edema neck vein distention) - Assessment/Plan (1) Coronary artery disease Chronic I25.10 - ATHSCL HEART DISEASE OF [place] CORONARY ARTERY W/O ANG PCTRS Present on Admission: Yes [place] artery [place] heart angina presence unspecified I25.10 - Atherosclerotic heart disease of [place] coronary artery without angina pectoris Comment/Plan: Presented to the hospital with unstable angina abnormal myocardial perfusion study and will continue current medical treatment and plan for coronary arteriography tomorrow unless her troponin turns positive. (2) Chest pain Deleted R07.9 - CHEST PAIN, UNSPECIFIED Present on Admission: Yes unspecified I R07.9 - Chest pain, unspecified Comment/Plan: The episode this morning predominately sounds like headache due to nitroglycerin paste, I have discontinued she is improved after receiving Zofran for nausea and will reassess troponin now and in 2 hours. I placed her on Lovenox and she will wait coronary arteriography tomorrow. (3) Essential hypertension Chronic I10 - ESSENTIAL (PRIMARY) HYPERTENSION Comment/Plan: Stable continue current treatment (4) Hyperlipidemia Chronic E78.5 - HYPERLIPIDEMIA, UNSPECIFIED Present on Admission: Yes unspecified E78.5 - Hyperlipidemia, unspecified Comment/Plan: Stable continue her statin
[2016-02-27] MEDS: ASPIRIN 325 MG TAB PO SCH (10:27)
[2016-02-27] MEDS: ATORVASTATIN 20 MG TAB PO SCH (10:28)
[2016-02-27] MEDS: VITAMINS, MULTIPLE CAP PO SCH (10:28)
[2016-02-27] MEDS: METOPROLOL TARTRATE 25 MG TAB PO SCH ×2 (10:28→21:58)
[2016-02-27] MEDS: MAGNESIUM OXIDE 400 MG TAB PO SCH (10:28)
[2016-02-27] MEDS: CLOPIDOGREL 75 MG TAB PO SCH (10:28)
[2016-02-27] MEDS: 1/2NS 1,000 ML IV SCH ×2 (11:09→19:51)
[2016-02-27] MEDS: ENOXAPARIN 80 MG/0.8 ML PFS SQ SCH ×2 (11:10→22:06)
--- NOTE | 2016-02-27 13:33 | CAPUEKG ---
[place], [place] Test Date: 2016-02-27 Pat Name: DORA MARIA Department: Room: 452 Gender: Female Weather Observer: BERRY: Requested By: Order Number: Reading MD: Johnathan Case MD Measurements Intervals [place] Rate: 58 P: 40 [place]: 184 QRS: 0 QRSD: 90 T: 31 QT: 448 QTc: 439 Interpretive Statements Sinus bradycardia with sinus arrhythmia Minimal voltage criteria for LVH, may be normal variant Borderline ECG Electronically Signed On 02-27-16 13:33:20 EST by Johnathan Case MD [id number]> [id number]
--- NOTE | 2016-02-27 15:39 | GENMEDPROG ---
Chief Complaint: No more chest discomfort but patient is aware she is going to have cardiac catheterization tomorrow. Notes Reviewed: Yes Events from last night noted and discussed with Clinical Staff Current Medication List: Reviewed DVT Prophylaxis: Yes - Physical Examination Vital Signs and I&O: Last Vital Signs Temp 97.4 F L 02/27/16 12:19 Pulse 57 L 02/27/16 13:00 Resp 18 02/27/16 12:19 BP 144/71 02/27/16 12:19 Pulse Ox 97 02/27/16 12:19 Oxygen Pulse Oxygen Saturation 97 O2 Device Nasal Cannula Oxygen Flow Rate 2 Fraction of Inspired Oxygen ( FIO2) Intake & Output 02/24/16 02/25/16 02/26/16 02/27/16 23:59 23:59 23:59 23:59 Intake Total 600 360 Output Total 1300 500 Balance -700 -140 Patient's weight 79.435 kg General: Alert, Oriented x3, No acute distress, Well appearing, Well nourished HEENT: Normal (Normocephalic, atraumatic;EOMI.Sclera white, Nares patent, without discharge or bleeding. No oropharyngeal lesions or erythema. Mucous membranes are dry.) Neck: Non-tender, Full range of motion, Normal Trachea alignment, Normal inspection (No cervical lymphadenopathy. No supraclavicular lymphadenopathy.), No Masses palpable, Supple Lymphatics: Normal (No lymph node swelling or pain.) Respiratory: Normal - CTA (No chest wall tenderness) Cardiovascular: Regular rate and rhythm (No bradycardia or tachycardia), Normal S1, No Gallops,Rubs/Murmurs, Normal S2, Good Pedal Pulses (DP pulses 2+ bilaterally) GI: Normal bowel sounds (normal active sounds), Soft (non-distended), Non tender , No hepatospenomegaly, No masses, Obese Extremities/Musculoskeletal: Normal pulses (DP pulses 2+ bilaterally) Skin: Warm,Dry and Intact, No rashes, No significant lesion Neurological: Strength at 5/5 X4 ext (Motor 5/5 throughout.), Normal tone, Cranial nerves 3-12 NL ( 2-12 grossly intact.) Psych/Mental Status: Appropriate, Normal Affect Lab/DI/Studies Reviewed: 02/27/16 05:26 02/27/16 05:26 Laboratory Results - last 24 hr 02/27/16 02/27/16 02/27/16 05:26 05:26 12:55 WBC 5.5 RBC 4.17 L Hgb 12.4 Hct 36.7 MCV 88 MCH 29.6 MCHC 33.7 RDW 14.2 Plt Count 255 MPV 9.2 Sodium 137 Potassium 4.8 Chloride 99 Carbon Dioxide 31 Anion Gap 12 BUN 21 H Creatinine 1.00 Estimated GFR (MDRD) 55 L Glucose 107 H Calculated Osmolality 267 L Calcium 9.0 Troponin I < 0.01 - Assessment (1) Coronary artery disease Chronic I25.10 - ATHSCL HEART DISEASE OF [place] CORONARY ARTERY W/O ANG PCTRS Qualifiers: Coronary Disease-Associated Artery/Lesion type: [place] artery [place] vs. transplanted heart: [place] heart Associated angina: angina presence unspecified Qualified Code(s): I25.10 - Atherosclerotic heart disease of [place] coronary artery without angina pectoris Comment/Plan: Continue patient's home aspirin and Plavix, also started on low- dose beta-lev with holding parameters (unsure why she is not on this at home , potentially due to her bradycardia). (2) Essential hypertension Chronic I10 - ESSENTIAL (PRIMARY) HYPERTENSION (3) Hyperlipidemia Chronic E78.5 - HYPERLIPIDEMIA, UNSPECIFIED Qualifiers: Hyperlipidemia type: unspecified Qualified Code(s): E78.5 - Hyperlipidemia , unspecified Comment/Plan: 20 mg of Lipitor appears to be doing an excellent job with lowering the lipids. (4) Angina Acute I20.9 - ANGINA PECTORIS, UNSPECIFIED Case Care Discussed with: Patient, Nursing Staff, Resource Management Education/Counseling Given To: Patient Education/Counseling Given Regarding: Diagnosis Total Time: 38 min Critical Care: No Code: 55655 (12+)
[2016-02-27] MEDS: PREDNISONE 20 MG TAB PO SCH ×2 (17:52→23:20)
[2016-02-28 03:37] VITALS: BMI 34.0
[2016-02-28 03:52] LABS: MPV 10.3 fL (7.4-10.4)
[2016-02-28] MEDS: 1/2NS 1,000 ML IV SCH ×4 (04:12→19:54)
[2016-02-28 04:23] LABS: BLOOD UREA NITROGEN 18 MG/DL (7-17); CALCIUM 9.1 MG/DL (8.4-10.2); CALCULATED OSMOLALITY 270 MOs/Kg (270-290); CHLORIDE 100 mEq/L (98-107); GLUCOSE 177 MG/DL (70-99); SODIUM LEVEL 137 mEq/L (137-146)
[2016-02-28] MEDS: PREDNISONE 20 MG TAB PO SCH (05:16)
[2016-02-28] MEDS: LANSOPRAZOLE 15 MG PO SCH (05:17)
--- NOTE | 2016-02-28 07:45 | PCM.DCS92 ---
- Final/Secondary Discharge Diagnosis (1) Coronary artery disease Chronic I25.10 - ATHSCL HEART DISEASE OF [place] CORONARY ARTERY W/O ANG PCTRS Present on Admission: Yes [place] artery [place] heart angina presence unspecified I25.10 - Atherosclerotic heart disease of [place] coronary artery without angina pectoris Comment: Continue patient's home aspirin and Plavix, also started on low-dose beta-lev with holding parameters (unsure why she is not on this at home, potentially due to her bradycardia). (2) Essential hypertension Chronic I10 - ESSENTIAL (PRIMARY) HYPERTENSION Present on Admission: Yes (3) Hyperlipidemia Chronic E78.5 - HYPERLIPIDEMIA, UNSPECIFIED Present on Admission: Yes unspecified E78.5 - Hyperlipidemia, unspecified Comment: 20 mg of Lipitor appears to be doing an excellent job with lowering the lipids. (4) Angina Acute I20.9 - ANGINA PECTORIS, UNSPECIFIED Present on Admission: Yes Discharge Disposition: Trans. to Other Hospital Discharge Condition: Improved Cognitive Discharge Status: Unimpaired Fuctional Discharge Status: Independent Home Medications / New Prescriptions: No Action Lansoprazole [Prevacid 24Hr] 15 mg PO DAILY Clopidogrel Bisulfate [Plavix] 75 mg PO DAILY Atorvastatin Calcium [Lipitor] 20 mg PO DAILY Aspirin 325 mg PO DAILY Multivitamin [Multiple Vitamins] 1 tab PO DAILY Magnesium Oxide [Magnesium] 250 mg PO DAILY Calcium Carbonate/Vitamin D3 [Calcium + Vit D Tablet (600mg/200IU)] 1 tab PO BID Cholecalciferol (Vitamin D3) [Vitamin D3] 10,000 unit PO DAILY O2 Device: Room Air Diet at Discharge: Cardiac, Heart Healthy Activity: As Tolerated Discontinue use of:: Alcohol, All Types of Tobacco - DC Summary Notes HPI/Notes: This is a pleasant 65-year-old female with a history of coronary artery disease and cardiac stenting in 2011 was being admitted to the hospital this morning due to chest pain. She tells me that she has been in her usual state of health , when she started feeling a fluttering and turning over sensation in her chest yesterday while she was at rest. This symptom past, and this morning when she was lying in bed she felt sudden onset at rest of chest pressure and slight pain , that was in the left mid sternal region, and radiated down to the middle of her left arm, as well as up into her left side of her neck. She feels that this is the same way she felt when she was previously diagnosed with coronary artery disease and required coronary artery stenting. She also notes that for the last several weeks she has had some associated vertigo, with sensation of the room spinning, associated nausea and dizziness. Dr. Case's consultation is as follows: Dora is a 65-year-old woman history of CAD remote PCI and stent last seen by Dr. samaniego 2 years ago. She relates she gets intermittent nonexertional chest heaviness relieved with rest. She had a more prolonged severe episode last evening associated with nausea some radiation through to the left shoulder unrelieved with nitroglycerin home that lasted for several hours and spontaneously resolved. He was moderate in severity on associated with activity unrelieved with nitroglycerin and rest. Serial troponins are undetectable EKG is normal and she underwent a myocardial perfusion study this morning which was positive for inferior wall ischemia. Hospital Course Note:: Discharge summary on patient named DORA MARIA admitted to [facility] on 02/26/16 by Xu Buckner MD. Date of discharge is 02/28/2016. She is admitted with chest pain and had a nuclear stress test next morning which is positive for inferior wall ischemia ejection fraction 47% and arrangements made to have her transferred to [facility] for cardiac catheterization today. She is premedicated with prednisone and Benadryl to avoid adverse effect from her IVP dye allergy. CC: Dr. Evie Lynn Total Time: 39 min Code: 33273 (>30min.) - Physical Exam Vital Signs: Last Vital Signs Temp 97.8 F 02/28/16 03:36 Pulse 74 02/28/16 05:00 Resp 18 02/28/16 03:36 BP 119/65 02/28/16 03:36 Pulse Ox 96 02/28/16 03:36 Oxygen Pulse Oxygen Saturation 96 O2 Device Room Air Oxygen Flow Rate 2 Fraction of Inspired Oxygen ( FIO2) Constitutional: Alert (Awake, Fully oriented, well appearing. No apparent distress), Well nourished, Well appearing Oriented to: Time, Person, Place - HEENT Head: Normal (No bruit thyromegaly or neck vein distention) Eye: Normal (EOMI, Sclera white) Oropharynx: Normal (moist) ENT EAC: Normal (No oropharyngeal lesions or erythema. Mucous membranes are dry. ) TMJ: Normal Nose: No Symptoms Reported (without discharge or bleeding) - Respiratory/Cardiovascular Respiratory: Normal - CTA (No chest wall tenderness) Cardiovascular: Normal (RRR , Normal S1, S2. No murmurs, rubs, or gallops. PMI non-displaced. Carotids: no carotid bruits. No bradycardia or tachycardia. DP pulses 2+ bilaterally.) - GI Auscultation: Normal Palpation: Normal (soft, non distended and nontender) Tenderness: Non tender (No rebound or guarding) - Musculoskeletal Back: negative: Abrasion, Ecchymosis, Laceration Extremities: Normal (normal tone, no cyanosis or edema), Femoral Pulse, Pedal Pulse, Radial Pulse. negative: Calf Tenderness, Clubbing, Cyanosis, Edema, Pedal Edema - Integumentary Skin: Normal (Warm dry no rashes) Lymphatics: Normal (No lymph node swelling or pain.) - Neurologic Memory Impaired: Normal Motor Function: Normal (Motor 5/5 throughout.Normal tone, Pulses 2+ No cyanosis or edema, FROM) Cranial Nerve: Normal (CN II-XII intact sensation, strength 5/5) Cerebellar: Normal. negative: Ataxia, Past-Pointing, Tremor Mood Description: Normal (Fully oriented and appropiate affect) Thought: Coherent Perception: Normal (Normal and appropriate affect.)
[2016-02-28] MEDS ORDERED: DIPHENHYDRAMINE 25 MG CAP PO ONE (08:00)
[2016-02-28] MEDS: MAGNESIUM OXIDE 400 MG TAB PO SCH (08:48)
[2016-02-28] MEDS: CLOPIDOGREL 75 MG TAB PO SCH (08:48)
[2016-02-28] MEDS: ASPIRIN 325 MG TAB PO SCH (08:48)
[2016-02-28] MEDS: VITAMINS, MULTIPLE CAP PO SCH (08:48)
[2016-02-28] MEDS: METOPROLOL TARTRATE 25 MG TAB PO SCH ×2 (08:49→19:56)
[2016-02-28] MEDS: ATORVASTATIN 20 MG TAB PO SCH (08:49)
--- NOTE | 2016-02-28 09:02 | PCM.CARD ---
- Subjective Reason for visit: Assessment before cardiac catheterization. Asymptomatic overnight. Vital Signs: Last Vital Signs Temp 97.7 F 02/28/16 08:27 Pulse 64 02/28/16 08:27 Resp 21 02/28/16 08:27 BP 139/76 02/28/16 08:27 Pulse Ox 94 02/28/16 08:27 - Assessment/Plan (1) Coronary artery disease Chronic I25.10 - ATHSCL HEART DISEASE OF [place] CORONARY ARTERY W/O ANG PCTRS Present on Admission: Yes [place] artery [place] heart angina presence unspecified I25.10 - Atherosclerotic heart disease of [place] coronary artery without angina pectoris Comment/Plan: For cardiac catheterization today. Procedure was explained to her including all risk benefits as well as alternatives. Luckily she has been stable overnight. (2) Essential hypertension Chronic I10 - ESSENTIAL (PRIMARY) HYPERTENSION Present on Admission: Yes Comment/Plan: On medication. Will continue will adjust her medications. (3) Hyperlipidemia Chronic E78.5 - HYPERLIPIDEMIA, UNSPECIFIED Present on Admission: Yes unspecified E78.5 - Hyperlipidemia, unspecified Comment/Plan: On statin which I will continue. - Plan General Appearance: Well developed. Well nourished. In no acute distress. Lungs: Chest was not overinflated. Clear to auscultation. Cardiovascular: Jugular Venous Distention: JVD not increased. Heart Rate And Rhythm: Normal. Heart Sounds: Normal. Murmurs: No murmurs were heard. Carotid Arteries: Carotid pulses were normal. No bruit in the carotid artery. Edema: Not present. Lower extremities pulses normal (including femoral popliteal and dorsalis pedis) . Musculoskeletal System: General/bilateral: No cyanosis of the fingers. Neurological: Oriented to time, place, and person. Nails: No clubbing of the fingernails. Lady with worrisome symptoms multiple risk factors especially family history of premature coronary artery disease. She did have a stress test showing ischemia involving right coronary artery. She be transferred to [facility] for cardiac catheterization today.
[2016-02-29] MEDS: 1/2NS 1,000 ML IV SCH (03:15)
[2016-02-29] MEDS: LANSOPRAZOLE 15 MG PO SCH (05:14)
[2016-02-29 05:33] LABS: MPV 9.5 fL (7.4-10.4)
[2016-02-29 05:41] LABS: BLOOD UREA NITROGEN 18 MG/DL (7-17); CALCIUM 8.7 MG/DL (8.4-10.2); CALCULATED OSMOLALITY 268 MOs/Kg (270-290); CHLORIDE 105 mEq/L (98-107); GLUCOSE 91 MG/DL (70-99); SODIUM LEVEL 138 mEq/L (137-146)
[2016-02-29] MEDS ORDERED: DIPHENHYDRAMINE 25 MG CAP PO ONE (08:00)
[2016-02-29] MEDS: METOPROLOL TARTRATE 25 MG TAB PO SCH (08:30)
[2016-02-29] MEDS ORDERED: PREDNISONE 20 MG TAB PO ONE (08:32)
--- NOTE | 2016-02-29 08:54 | GENMEDPROG ---
PROGRESS NOTE - Final/Secondary Discharge Diagnosis (1) Coronary artery disease Chronic I25.10 - ATHSCL HEART DISEASE OF [place] CORONARY ARTERY W/O ANG PCTRS Present on Admission: Yes [place] artery [place] heart angina presence unspecified I25.10 - Atherosclerotic heart disease of [place] coronary artery without angina pectoris Comment: Continue patient's home aspirin and Plavix, also started on low-dose beta-lev with holding parameters (unsure why she is not on this at home, potentially due to her bradycardia). (2) Essential hypertension Chronic I10 - ESSENTIAL (PRIMARY) HYPERTENSION Present on Admission: Yes (3) Hyperlipidemia Chronic E78.5 - HYPERLIPIDEMIA, UNSPECIFIED Present on Admission: Yes unspecified E78.5 - Hyperlipidemia, unspecified Comment: 20 mg of Lipitor appears to be doing an excellent job with lowering the lipids. (4) Angina Acute I20.9 - ANGINA PECTORIS, UNSPECIFIED Present on Admission: Yes Discharge Disposition: Trans. to Other Hospital Discharge Condition: Improved Cognitive Discharge Status: Unimpaired Fuctional Discharge Status: Independent Home Medications / New Prescriptions: No Action Lansoprazole [Prevacid 24Hr] 15 mg PO DAILY Clopidogrel Bisulfate [Plavix] 75 mg PO DAILY Atorvastatin Calcium [Lipitor] 20 mg PO DAILY Aspirin 325 mg PO DAILY Multivitamin [Multiple Vitamins] 1 tab PO DAILY Magnesium Oxide [Magnesium] 250 mg PO DAILY Calcium Carbonate/Vitamin D3 [Calcium + Vit D Tablet (600mg/200IU)] 1 tab PO BID Cholecalciferol (Vitamin D3) [Vitamin D3] 10,000 unit PO DAILY O2 Device: Room Air Diet at Discharge: Cardiac, Heart Healthy Activity: As Tolerated Discontinue use of:: Alcohol, All Types of Tobacco - DC Summary Notes HPI/Notes: This is a pleasant 65-year-old female with a history of coronary artery disease and cardiac stenting in 2011 was being admitted to the hospital this morning due to chest pain. She tells me that she has been in her usual state of health , when she started feeling a fluttering and turning over sensation in her chest yesterday while she was at rest. This symptom past, and this morning when she was lying in bed she felt sudden onset at rest of chest pressure and slight pain , that was in the left mid sternal region, and radiated down to the middle of her left arm, as well as up into her left side of her neck. She feels that this is the same way she felt when she was previously diagnosed with coronary artery disease and required coronary artery stenting. She also notes that for the last several weeks she has had some associated vertigo, with sensation of the room spinning, associated nausea and dizziness. Dr. Case's consultation is as follows: Dora is a 65-year-old woman history of CAD remote PCI and stent last seen by Dr. samaniego 2 years ago. She relates she gets intermittent nonexertional chest heaviness relieved with rest. She had a more prolonged severe episode last evening associated with nausea some radiation through to the left shoulder unrelieved with nitroglycerin home that lasted for several hours and spontaneously resolved. He was moderate in severity on associated with activity unrelieved with nitroglycerin and rest. Serial troponins are undetectable EKG is normal and she underwent a myocardial perfusion study this morning which was positive for inferior wall ischemia. Hospital Course Note:: Discharge summary on patient named DORA MARIA admitted to [facility] on 02/26/16 by Xu Buckner MD. Date of discharge is 02/28/2016. She is admitted with chest pain and had a nuclear stress test next morning which is positive for inferior wall ischemia ejection fraction 47% and arrangements made to have her transferred to [facility] for cardiac catheterization today. She is premedicated with prednisone and Benadryl to avoid adverse effect from her IVP dye allergy. CC: Dr. Evie Lynn Total Time: 39 min Code: 47224 (>30min.) - Physical Exam Vital Signs: Last Vital Signs Temp 97.8 F 02/28/16 03:36 Pulse 74 02/28/16 05:00 Resp 18 02/28/16 03:36 BP 119/65 02/28/16 03:36 Pulse Ox 96 02/28/16 03:36 Oxygen Pulse Oxygen Saturation 96 O2 Device Room Air Oxygen Flow Rate 2 Fraction of Inspired Oxygen ( FIO2) Constitutional: Alert (Awake, Fully oriented, well appearing. No apparent distress), Well nourished, Well appearing Oriented to: Time, Person, Place - HEENT Head: Normal (No bruit thyromegaly or neck vein distention) Eye: Normal (EOMI, Sclera white) Oropharynx: Normal (moist) ENT EAC: Normal (No oropharyngeal lesions or erythema. Mucous membranes are dry. ) TMJ: Normal Nose: No Symptoms Reported (without discharge or bleeding) - Respiratory/Cardiovascular Respiratory: Normal - CTA (No chest wall tenderness) Cardiovascular: Normal (RRR , Normal S1, S2. No murmurs, rubs, or gallops. PMI non-displaced. Carotids: no carotid bruits. No bradycardia or tachycardia. DP pulses 2+ bilaterally.) - GI Auscultation: Normal Palpation: Normal (soft, non distended and nontender) Tenderness: Non tender (No rebound or guarding) - Musculoskeletal Back: negative: Abrasion, Ecchymosis, Laceration Extremities: Normal (normal tone, no cyanosis or edema), Femoral Pulse, Pedal Pulse, Radial Pulse. negative: Calf Tenderness, Clubbing, Cyanosis, Edema, Pedal Edema - Integumentary Skin: Normal (Warm dry no rashes) Lymphatics: Normal (No lymph node swelling or pain.) - Neurologic Memory Impaired: Normal Motor Function: Normal (Motor 5/5 throughout.Normal tone, Pulses 2+ No cyanosis or edema, FROM) Cranial Nerve: Normal (CN II-XII intact sensation, strength 5/5) Cerebellar: Normal. negative: Ataxia, Past-Pointing, Tremor Mood Description: Normal (Fully oriented and appropiate affect) Thought: Coherent Perception: Normal (Normal and appropriate affect.) <Electronically signed by Maico Pang MD> 02/28/16 [id number] Courtesy Copy to:: Tamia Lynn MD~ MTDD
[2016-02-29] MEDS: MAGNESIUM OXIDE 400 MG TAB PO SCH (09:04)
[2016-02-29] MEDS: ATORVASTATIN 20 MG TAB PO SCH (09:04)
[2016-02-29] MEDS: ASPIRIN 325 MG TAB PO SCH (09:04)
[2016-02-29] MEDS: CLOPIDOGREL 75 MG TAB PO SCH (09:05)
--- NOTE | 2016-02-29 09:11 | PCM.DCS92 ---
- Final/Secondary Discharge Diagnosis (1) Coronary artery disease Chronic I25.10 - ATHSCL HEART DISEASE OF [place] CORONARY ARTERY W/O ANG PCTRS Present on Admission: Yes [place] artery [place] heart angina presence unspecified I25.10 - Atherosclerotic heart disease of [place] coronary artery without angina pectoris Comment: Continue patient's home aspirin and Plavix, also started on low-dose beta-lev with holding parameters (unsure why she is not on this at home, potentially due to her bradycardia). (2) Essential hypertension Chronic I10 - ESSENTIAL (PRIMARY) HYPERTENSION Present on Admission: Yes (3) Hyperlipidemia Chronic E78.5 - HYPERLIPIDEMIA, UNSPECIFIED Present on Admission: Yes unspecified E78.5 - Hyperlipidemia, unspecified Comment: 20 mg of Lipitor appears to be doing an excellent job with lowering the lipids. (4) Angina Acute I20.9 - ANGINA PECTORIS, UNSPECIFIED Present on Admission: Yes Discharge Disposition: Trans. to Other Hospital Discharge Condition: Improved Cognitive Discharge Status: Unimpaired Fuctional Discharge Status: Independent Home Medications / New Prescriptions: No Action Lansoprazole [Prevacid 24Hr] 15 mg PO DAILY Clopidogrel Bisulfate [Plavix] 75 mg PO DAILY Atorvastatin Calcium [Lipitor] 20 mg PO DAILY Aspirin 325 mg PO DAILY Multivitamin [Multiple Vitamins] 1 tab PO DAILY Magnesium Oxide [Magnesium] 250 mg PO DAILY Calcium Carbonate/Vitamin D3 [Calcium + Vit D Tablet (600mg/200IU)] 1 tab PO BID Cholecalciferol (Vitamin D3) [Vitamin D3] 10,000 unit PO DAILY O2 Device: Room Air Diet at Discharge: Heart Healthy Discontinue use of:: Alcohol, All Types of Tobacco - DC Summary Notes HPI/Notes: This is a pleasant 65-year-old female with a history of coronary artery disease and cardiac stenting in 2011 was being admitted to the hospital this morning due to chest pain. She tells me that she has been in her usual state of health , when she started feeling a fluttering and turning over sensation in her chest yesterday while she was at rest. This symptom past, and this morning when she was lying in bed she felt sudden onset at rest of chest pressure and slight pain , that was in the left mid sternal region, and radiated down to the middle of her left arm, as well as up into her left side of her neck. She feels that this is the same way she felt when she was previously diagnosed with coronary artery disease and required coronary artery stenting. She also notes that for the last several weeks she has had some associated vertigo, with sensation of the room spinning, associated nausea and dizziness. Dr. Case's consultation is as follows: Dora is a 65-year-old woman history of CAD remote PCI and stent last seen by Dr. samaniego 2 years ago. She relates she gets intermittent nonexertional chest heaviness relieved with rest. She had a more prolonged severe episode last evening associated with nausea some radiation through to the left shoulder unrelieved with nitroglycerin home that lasted for several hours and spontaneously resolved. He was moderate in severity on associated with activity unrelieved with nitroglycerin and rest. Serial troponins are undetectable EKG is normal and she underwent a myocardial perfusion study this morning which was positive for inferior wall ischemia. Hospital Course Note:: Discharge summary on patient named DORA MARIA admitted to [facility] on 02/26/16 by Xu Buckner MD. Date of discharge is 02/29/2016. She is admitted with chest pain and had a nuclear stress test next morning which is positive for inferior wall ischemia ejection fraction 47% and arrangements made to have her transferred to [facility] for cardiac catheterization today. She is premedicated with prednisone and Benadryl to avoid adverse effect from her IVP dye allergy. CC: Dr. Shane Case Total Time: 41 min Code: 14316 (>30min.) - Physical Exam Vital Signs: Last Vital Signs Temp 97.5 F 02/29/16 07:57 Pulse 58 L 02/29/16 08:45 Resp 17 02/29/16 07:57 BP 155/72 02/29/16 07:57 Pulse Ox 99 02/29/16 07:57 Oxygen Pulse Oxygen Saturation 99 O2 Device Room Air Oxygen Flow Rate 2 Fraction of Inspired Oxygen ( FIO2) Constitutional: Alert (Awake, Fully oriented, well appearing. No apparent distress), Well nourished, Well appearing Oriented to: Time, Person, Place - HEENT Head: Normal (No bruit thyromegaly or neck vein distention) Eye: Normal (EOMI, Sclera white) Oropharynx: Normal (moist) Nose: No Symptoms Reported (without discharge or bleeding) - Respiratory/Cardiovascular Respiratory: Normal - CTA (No chest wall tenderness) - GI Auscultation: Normal Palpation: Normal (soft, non distended and nontender) Tenderness: Non tender (No rebound or guarding) John's Sign: Negative - Musculoskeletal Extremities: Normal (normal tone, no cyanosis or edema), Femoral Pulse, Pedal Pulse, Radial Pulse. negative: Calf Tenderness, Clubbing, Cyanosis, Edema, Pedal Edema - Integumentary Skin: Normal (Warm dry no rashes) Lymphatics: Normal (No lymph node swelling or pain.) - Neurologic Memory Impaired: Normal Motor Function: Normal (Motor 5/5 throughout.Normal tone, Pulses 2+ No cyanosis or edema, FROM) Cranial Nerve: Normal (CN II-XII intact sensation, strength 5/5) Cerebellar: Normal (Babinski: toes downgoing bilaterally. Intact Finger to nose. Sensory grossly intact to light touch. Intact rapid alternating movements bilaterally. No pronator drift.) Mood Description: Normal (Fully oriented and appropiate affect) Perception: Normal (Normal and appropriate affect.)
[2016-02-29 09:14] VITALS: BP 133/74; PULSE 65; TEMP 97.7
== END 2016-02-29 09:30 | disposition short-term general hospital (02) | DRG 303 ==
LOC: ED 09:14 → PCU 12:19 → UNDOADMOB 12:19 → OBSVTOIN 02-26 12:00 → INTOOBSV 02-26 12:00
PROVIDERS: ADMIT Internal Medicine; ATTEND Internal Medicine
DX: I25.119 Atherosclerotic heart disease of native coronary artery with unspecified angina pectoris (principal); I10 Essential (primary) hypertension; E78.5 Hyperlipidemia, unspecified; I25.2 Old myocardial infarction; E78.00 Pure hypercholesterolemia, unspecified; M19.90 Unspecified osteoarthritis, unspecified site; J45.909 Unspecified asthma, uncomplicated; Z88.5 Allergy status to narcotic agent; Z88.8 Allergy status to other drugs, medicaments and biological substances; Z91.041 Radiographic dye allergy status; Z79.82 Long term (current) use of aspirin; Z79.899 Other long term (current) drug therapy; Z98.61 Coronary angioplasty status; Z85.9 Personal history of malignant neoplasm, unspecified
CPT/HCPCS: 36415; 71010; 78452; 80048; 80053; 80061; 81001; 84484; 85025; 85027; 85610; 85730; 87641; 93005; 93017; 96372; 99284; A4216; A9500; G0378; J1650; J2405; J2785; J3490